=== PATIENT | female | born 1945 | race Two or more races ===

== ENCOUNTER → 2023-03-17 | Emergency (ER) | payer OTHER ==
[~2023-03-17] VITALS: Ht 160 cm; Wt 68.0 kg
[~2023-03-17] MED LIST: ATORVASTATIN CA20 MG PO; GLIPIZIDE XL10 MG PO; SYNTHROID50 MCG PO
== END | disposition home or self-care (01) ==
LOC: ER 09:22
DX: J40 Bronchitis, not specified as acute or chronic (principal); E11.9 Type 2 diabetes mellitus without complications; Z79.84 Long term (current) use of oral hypoglycemic drugs; I10 Essential (primary) hypertension

== ENCOUNTER 2024-09-01 09:12 | Emergency (ER) | payer OTHER ==
[~2024-09-01] VITALS: Ht 160 cm; Wt 70.3 kg
[2024-09-01 11:09] LABS: HEMATOCRIT 39.1 % (36.0-45.00); HEMOGLOBIN 13.1 g/dL (12.0-15.00); MEAN CELL VOLUME 93.3 fL (80.00-100.00); MEAN CORPUSCULAR HEMOGLOBIN 31.3 pg (27.00-32.0); MEAN CORPUSCULAR HGB CONC 33.5 g/dl (32.0-36.0); PH,URINE 7.5 (5.0-8.0); PLATELET COUNT 291 K/uL (150-450); RED CELL DISTRIBUTION WIDTH 13.5 % (11.5-14.5); URINE APPEARANCE Clear; URINE BILIRRUBIN Negative (NEGATIVE); URINE BLOOD Small; URINE COLOR Yellow; URINE GLUCOSE Negative (NEGATIVE); URINE KETONE Negative (NEGATIVE); URINE LEUKOCYTE Large; URINE NITRATE Negative; URINE PROTEIN Negative (NEGATIVE); URINE UROBILINOGEN 0.2 E.U./dl
[2024-09-01 11:13] LABS: URINE EPITHELIAL CELLS 21.7 uL (0.0-38.8); URINE RBC 40.6 uL (0.0-20.8); URINE WBC 155.6 uL (0.0-23.2)
[2024-09-01 11:36] LABS: ALBUMIN 4.2 gm/dL (3.4-5.0); BILIRUBIN TOTAL 0.78 mg/dL (0.3-1.2); CALCIUM 9.1 mg/dL (8.5-10.1); CREATININE SERUM 0.84 mg/dL (0.55-1.02); GFR 65.57; GLOBULINA 3.8 G/DL (2.4-3.5); POTASSIUM 4.39 mEq/L (3.5-5.1)
[2024-09-02] MEDS ORDERED: NORVASC5 MG PO (04:41)
== END 2024-09-01 13:51 | disposition home or self-care (01) ==
LOC: ER 09:13
PROVIDERS: Emergency Medicine
DX: R07.9 Chest pain, unspecified (principal); E05.80 Other thyrotoxicosis without thyrotoxic crisis or storm; I10 Essential (primary) hypertension; E11.9 Type 2 diabetes mellitus without complications; Z79.84 Long term (current) use of oral hypoglycemic drugs

== ENCOUNTER 2024-09-02 04:05 | Emergency (ER) | payer OTHER ==
[~2024-09-02] VITALS: Ht 160 cm; Wt 69.9 kg
[2024-09-02] MEDS ORDERED: NORVASC5 MG PO (04:41)
[2024-09-02] MEDS ORDERED: MECLIZINE HCL 25 MG TABLET PO STA (06:10)
[2024-09-02] MEDS ORDERED: ACETAMINOPHEN 500 MG GEL..CAP PO STA (06:10)
[2024-09-02 07:08] LABS: BILIRUBIN TOTAL 0.58 mg/dL (0.3-1.2); CALCIUM 9.1 mg/dL (8.5-10.1); CREATININE SERUM 0.91 mg/dL (0.55-1.02); GFR 59.79; GLOBULINA 4.3 G/DL (2.4-3.5); POTASSIUM 3.66 mEq/L (3.5-5.1); TOTAL PROTEIN 8.3 gm/dL (6.4-8.2)
[2024-09-02 07:10] LABS: HEMATOCRIT 38.5 % (36.0-45.00); MEAN CELL VOLUME 93.1 fL (80.00-100.00); MEAN CORPUSCULAR HEMOGLOBIN 31.6 pg (27.00-32.0); MEAN CORPUSCULAR HGB CONC 33.9 g/dl (32.0-36.0); PLATELET COUNT 284 K/uL (150-450); RED BLOOD COUNT 4.13 M/uL (4.00-6.00); RED CELL DISTRIBUTION WIDTH 13.5 % (11.5-14.5)
[2024-09-02 07:36] LABS: URINE APPEARANCE Clear; URINE BILIRRUBIN Negative (NEGATIVE); URINE COLOR Yellow; URINE GLUCOSE Negative (NEGATIVE); URINE KETONE Negative (NEGATIVE); URINE LEUKOCYTE Small; URINE NITRATE Negative; URINE PROTEIN Negative (NEGATIVE); URINE UROBILINOGEN 0.2 E.U./dl
[2024-09-02 07:40] LABS: URINE BACTERIA 36.5 uL (0.0-1933); URINE EPITHELIAL CELLS 6.6 uL (0.0-38.8); URINE RBC 12.5 uL (0.0-20.8)
[2024-09-02 07:47] LABS: URINE BLOOD TRACE
== END 2024-09-02 10:29 | disposition home or self-care (01) ==
LOC: ER 04:07
PROVIDERS: General Practice
DX: R42 Dizziness and giddiness (principal); I10 Essential (primary) hypertension; E11.9 Type 2 diabetes mellitus without complications